=== PATIENT | female | born 1995 | race African-American/Black ===

== ENCOUNTER 2018-03-09 05:30 | Day surgery (SDC) | payer OTHER ==
[~2018-03-09] VITALS: Ht 152.4 cm; Wt 104.8 kg
--- NOTE | ~2018-03-09 | HP ---
PATIENT: GE LANE MEDICAL RECORD: [id number] ACCOUNT: [id number] LOCATION:[facility] : 95 ADMISSION DATE: 03/09/18 HISTORY AND PHYSICAL EXAMINATION HISTORY OF PRESENT ILLNESS: Ge is 22. She has been having persistent problems with recurrent pharyngitis and caseous tonsillitis. She is being admitted for tonsillectomy and adenoidectomy. PAST MEDICAL HISTORY: Otherwise negative. PAST SURGICAL HISTORY: None. CURRENT MEDICATIONS: None. ALLERGIES: No known drug allergies. PHYSICAL EXAMINATION: GENERAL: She is healthy-appearing. FACE: Normal, symmetric, no lesions. EYES: Sclerae and conjunctivae are normal. EARS: Canals and TMs are normal. NOSE: No mass, polyps, or drainage. ORAL CAVITY AND OROPHARYNX: A 3 to 4+ cryptic tonsils with copious tonsilliths. NECK: No masses, no adenopathy. CHEST: Clear. CARDIOVASCULAR: Regular rate and rhythm, no murmur. EXTREMITIES: Normal. IMPRESSION: Chronic pharyngitis and caseous tonsillitis. PLAN: Tonsillectomy and adenoidectomy. TRANSINT:[id number] Voice Confirmation ID: [id number] DOCUMENT ID: [id number] KRIS ISAAC MD at 1254 CC: [id number] DICTATION DATE: 03/06/18 1348 [employer] LOOM: 03/06/18 1429 [facility] 03/09/18 [place] [address]
--- NOTE | ~2018-03-09 | OP ---
PATIENT NAME: MARY LANE MEDICAL RECORD: [id number] :95 LOCATION:[facility] ADMISSION DATE: SURGEON: KRIS AYALA MD DATE OF OPERATION: 03/09/2018 PREOPERATIVE DIAGNOSES: Obstructive adenotonsillar hypertrophy and chronic pharyngitis. POSTOPERATIVE DIAGNOSES: Obstructive adenotonsillar hypertrophy and chronic pharyngitis. PROCEDURE: Tonsillectomy and adenoidectomy. SURGEON: Kris Ayala MD ANESTHESIA: General orotracheal. BLOOD LOSS: 5 cc. SPECIMENS: Right and left tonsil. COMPLICATIONS: None. DISPOSITION: Recovery stable. PROCEDURE NOTE: She was brought to the operating room and placed in supine position, sedated and intubated by anesthesia. The table was turned 90 degrees. Head drapes were applied. She was positioned for tonsillectomy. Using a headlight, a Xochitl-Ralf mouth gag was carefully inserted and elevated on a towel on her chest. The palate was examined and palpated as normal. A red rubber catheter was placed through the right side of the nose and pharynx was grasped with tonsil clamp to retract the soft palate. Using a mirror, the nasopharynx was examined. Suction cautery on a setting of 35 was used to ablate and suction the adenoid pad with no significant bleeding. Choanae and eustachian orifices were normal bilaterally. The red rubber catheter was let down and removed. The right tonsil was grasped at the superior pole with a straight Allis clamp. Spatula tip cautery on a setting of 9 was used to dissect out the tonsil along its capsule, preserving the anterior and posterior tonsillar pillar. The left tonsil was removed in the same fashion. Then, both sides of the nose were irrigated with saline. The pharynx was suctioned. Tonsillar fossae were agitated. Suction cautery on a setting of 20 was used to control minimal oozing. With the field clean and dry, she was awakened, extubated, and transported to recovery in good condition. No complications. TRANSINT:[id number] Voice Confirmation ID: [id number] DOCUMENT ID: [id number] KRIS AYALA MD at 1254 CC: [id number] DICTATION DATE: 03/09/18 0940 ASSISTANT BRAND MANAGER: 03/09/18 1201 [facility] [place] 03/09/18 [facility] [address] [facility] [place] [address]
[2018-03-09 05:44] LABS: HEMATOCRIT 35.6 % (36.0-48.0); MCH 32.3 pg (26.0-34.0); MCHC 33.7 g/dL (31.0-37.0); MEAN PLATELET VOLUME 9.3 fL (7.4-10.4); RBC 3.71 10x6/uL (4.00-5.40); WBC 6.5 10x3/uL (4.8-10.8)
[2018-03-09 06:40] VITALS: BP 134/71; Ht 152.4 cm; Wt 104.8 kg
[2018-03-09 07:01] LABS: HCG URINE NEGATIVE (NEGATIVE)
== END 2018-03-09 11:50 | disposition home or self-care (01) ==
LOC: D.OPS 05:30 → D.PAN 07:30 → D.OPS 11:50
PROVIDERS: Anesthesiology; Otolaryngology
DX: J35.01 Chronic tonsillitis (principal); J31.2 Chronic pharyngitis; Z01.812 Encounter for preprocedural laboratory examination